=== PATIENT | female | born 1960 | race Caucasian/White ===

== ENCOUNTER → 2017-08-02 | Outpatient (CLI) | payer MEDICARE ==
[~2017-08-02] MED LIST: GADOBUTROL 7.5 MMOL/7.5 ML VIAL IV ONE
--- NOTE | 2017-08-02 12:23 | RAD ---
MRI of the Brain without and with Contrast 08/02/2017 Clinical History: Increasing headaches.. Technique: Unenhanced T1-weighted sagittal and axial and FLAIR, T2-weighted, gradient echo and diffusion-weighted axial images of the brain were obtained. After the intravenous administration of 6 cc of Gadavist, enhanced T1-weighted axial and coronal images of the brain were obtained. Findings: The ventricles and sulci are within normal limits in size and configuration. No area of abnormal signal intensity is seen involving the brain parenchyma. Patchy and several small scattered areas of increased signal intensity are seen within the periventricular and subcortical white matter of both cerebral hemispheres on the FLAIR and T2-weighted images. These have a nonspecific MRI appearance but are felt to most likely represent areas of relatively mild small vessel ischemic disease. No acute parenchymal abnormality is seen. There is no MRI evidence of acute ischemia/infarction. No abnormal area of contrast enhancement is seen. No extra-axial fluid collection is noted. Mild to moderate mucosal thickening in seen scattered throughout the paranasal sinuses. There are minimal bilateral mastoid effusions. Normal flow voids are seen within the major vascular structures surrounding the brain parenchyma. Impression: No acute parenchymal abnormality is seen. Electronically signed by: Baldemar Thompson MD (08/02/2017 12:20 PM) [id number]
== END | disposition home or self-care (01) ==
LOC: MRI 09:11
PROVIDERS: ATTEND Internal Medicine
DX: H44.89 Other disorders of globe (principal); H53.8 Other visual disturbances; J44.9 Chronic obstructive pulmonary disease, unspecified; R68.84 Jaw pain; R42 Dizziness and giddiness; R51 Headache
CPT/HCPCS: 70553; A9585